=== PATIENT | female | born 1995 | race Caucasian/White ===

== ENCOUNTER 2019-03-07 10:19 | Outpatient (REF) | payer OTHER, SELFPAY ==
[2019-03-07 21:48] LABS: ALT 34 U/L (12-78); AST 17 U/L (15-37); Albumin 3.5 g/dL (3.4-5.0); Alkaline Phosphatase 76 U/L (46-116); Anion Gap 13.1 mmol/L (3-11); BUN 13 mg/dL (7-18); Bilirubin, Total 0.3 mg/dL (0.2-1.0); CO2 23.9 mmol/L (21.0-32.0); CREATININE 0.94 mg/dL (0.55-1.02); Calcium 9.5 mg/dL (8.5-10.1); Chloride 99 mmol/L (98-107); Cholesterol 220 mg/dL (50-200); Glucose 122 mg/dL (70-100); HDL Cholesterol 40 mg/dL (40-60); LDL CHOLESTEROL 149 mg/dL (<100); Potassium 4.3 mmol/L (3.5-5.1); Sodium 136 mmol/L (136-145); TSH 4.24 uIU/mL (0.358-3.74); Total Protein 7.7 g/dL (6.4-8.2); Triglyceride 215 mg/dL (30-150)
== END 2019-03-07 10:39 ==
LOC: NCHCN 10:19
PROVIDERS: PCP Family Medicine; Visit Provider Family Medicine
DX: E03.9 Hypothyroidism, unspecified (principal); Z00.00 Encounter for general adult medical examination without abnormal findings; E66.9 Obesity, unspecified
CPT/HCPCS: 80053; 80061; 83721; 84443

== ENCOUNTER 2019-10-17 15:25 | Outpatient (REF) | payer OTHER, SELFPAY ==
[2019-10-17 22:01] LABS: ALT 60 U/L (14-59); AST 41 U/L (15-37); Albumin 3.7 g/dL (3.4-5.0); Alkaline Phosphatase 67 U/L (46-116); Anion Gap 9.7 mmol/L (3-11); BUN 11 mg/dL (7-18); Bilirubin, Total 0.2 mg/dL (0.2-1.0); CO2 27.3 mmol/L (21.0-32.0); CREATININE 0.85 mg/dL (0.55-1.02); Calcium 9.4 mg/dL (8.5-10.1); Chloride 102 mmol/L (98-107); Glucose 151 mg/dL (74-106); Potassium 4.1 mmol/L (3.5-5.1); Sodium 139 mmol/L (136-145); TSH (W/Ref FT4) 4.84 uIU/mL (0.36-3.74); Total Protein 7.6 g/dL (6.4-8.2)
[2019-10-17 22:22] LABS: FREE T4 1.23 ng/dL (0.76-1.46)
== END 2019-10-17 15:45 ==
LOC: NCHCN 15:25
PROVIDERS: PCP Family Medicine; Visit Provider Nurse Practitioner Family
DX: R73.9 Hyperglycemia, unspecified (principal); I10 Essential (primary) hypertension; E03.9 Hypothyroidism, unspecified
CPT/HCPCS: 80053; 84439; 84443

== ENCOUNTER 2019-12-05 16:24 | Outpatient (REF) | payer OTHER, SELFPAY ==
[2019-12-05 21:03] LABS: Hemoglobin A1C 6.2 % (3.8-5.6)
[2019-12-05 21:20] LABS: ALT 46 U/L (14-59); AST 26 U/L (15-37); Albumin 3.6 g/dL (3.4-5.0); Alkaline Phosphatase 68 U/L (46-116); Anion Gap 9.7 mmol/L (3-11); BUN 9 mg/dL (7-18); Bilirubin, Total 0.3 mg/dL (0.2-1.0); CO2 28.3 mmol/L (21.0-32.0); CREATININE 0.77 mg/dL (0.55-1.02); Calcium 9.8 mg/dL (8.5-10.1); Chloride 102 mmol/L (98-107); Glucose 94 mg/dL (74-106); HDL Cholesterol 40 mg/dL (40-60); Potassium 4.2 mmol/L (3.5-5.1); Sodium 140 mmol/L (136-145); Total Protein 7.4 g/dL (6.4-8.2); Triglyceride 225 mg/dL (<150)
[2019-12-05 21:29] LABS: COMMENT (LAB VIEW ONLY) 201.17 mg/dL; Microalb ug/mg Crea 468.3 ug/mg Cr
[2019-12-05 21:31] LABS: Calculated LDL 165 mg/dL; Cholesterol 250 mg/dL (<200)
[2019-12-11 09:38] LABS: Testosterone, Free 1.09 ng/dL (0.06-1.08); Testosterone, Total 78 ng/dL (8-60)
== END 2019-12-05 16:44 ==
LOC: NCHCN 16:24
PROVIDERS: PCP Family Medicine; Visit Provider Family Medicine
DX: R73.9 Hyperglycemia, unspecified (principal); R80.9 Proteinuria, unspecified; E78.1 Pure hyperglyceridemia; I10 Essential (primary) hypertension; E66.9 Obesity, unspecified; E03.9 Hypothyroidism, unspecified
CPT/HCPCS: 80053; 80061; 84402; 84403; 82043; 82570; 83036; 84146; 84443

== ENCOUNTER 2020-08-31 17:41 | Outpatient (REF) | payer OTHER, SELFPAY ==
--- NOTE | 2020-08-31 16:00 | PAPFT_PTH ---
PATIENT: Mary Forde LOC: [facility] U#:[id number] AGE/SX: 25/F ROOM: RE08/31/[address]: Tripp Kent : 1995 BED: DIS: 08/31/2020 SPEC #: [id number] RECD: 09/01/20 13:01 STATUS: JUVENAL REParadise #: [id number] ELVIN: 08/31/20 16:[address]: Tripp Kent DEPT: [facility] Cytology RECD BY: Sarai Durham Tissues: 1 - CX/ENDOCX FOR PAP SMEARS Procedures: PAP THIN PREP/[facility] Screening Comments: [id number] (CHLAMYDIA/GC)
[2020-08-31 21:25] LABS: Hemoglobin A1C 5.9 % (<5.7)
[2020-08-31 21:40] LABS: ALT 53 U/L (14-59); AST 38 U/L (15-37); Albumin 3.4 g/dL (3.4-5.0); Alkaline Phosphatase 69 U/L (46-116); BUN 12 mg/dL (7-18); Bilirubin, Total 0.2 mg/dL (0.2-1.0); CREATININE 1.03 mg/dL (0.55-1.02); Calcium 9.4 mg/dL (8.5-10.1); Calculated LDL 133 mg/dL (<100); Chloride 101 mmol/L (98-107); Cholesterol 236 mg/dL (<200); Glucose 153 mg/dL (74-106); HDL Cholesterol 39 mg/dL (40-60); Potassium 3.9 mmol/L (3.5-5.1); Sodium 138 mmol/L (136-145); TSH 4.52 uIU/mL (0.36-3.74); Total Protein 7.5 g/dL (6.4-8.2); Triglyceride 320 mg/dL (<150)
[2020-08-31 22:11] LABS: PROTEIN 285.4 mg/dL
[2020-08-31 22:24] LABS: COMMENT (LAB VIEW ONLY) 273.82 mg/dL; Prot/Crea Ur Ratio 1.04
[2020-09-06 14:39] LABS: Chlamydia Result Negative (Negative); GC Result Negative (Negative)
== END 2020-08-31 18:01 ==
LOC: NCHCN 17:41
PROVIDERS: PCP Family Medicine; Visit Provider Family Medicine
DX: R80.9 Proteinuria, unspecified (principal); E03.9 Hypothyroidism, unspecified; E78.1 Pure hyperglyceridemia; R73.03 Prediabetes; N91.1 Secondary amenorrhea; E28.2 Polycystic ovarian syndrome; I10 Essential (primary) hypertension; E66.9 Obesity, unspecified; Z12.4 Encounter for screening for malignant neoplasm of cervix; Z11.3 Encounter for screening for infections with a predominantly sexual mode of transmission
CPT/HCPCS: 80053; 80061; 87491; 87591; 88142; 82565; 83036; 84156; 84443

== ENCOUNTER 2020-10-25 20:12 | Outpatient (REF) | payer OTHER, SELFPAY ==
[2020-10-25 21:56] LABS: TSH 3.83 uIU/mL (0.36-3.74)
== END 2020-10-25 20:32 ==
LOC: NCHCN 20:12
PROVIDERS: PCP Family Medicine; Visit Provider Family Medicine
DX: E03.9 Hypothyroidism, unspecified (principal)
CPT/HCPCS: 84443

== ENCOUNTER 2021-01-12 16:21 | Outpatient (REF) | payer OTHER, SELFPAY ==
[2021-01-12 22:17] LABS: Hemoglobin A1C 6.1 % (<5.7)
[2021-01-12 22:23] LABS: TSH 4.09 uIU/mL (0.36-3.74)
== END 2021-01-12 16:22 | disposition home or self-care (01) ==
LOC: NCHCN 16:21
PROVIDERS: PCP Family Medicine; Visit Provider Family Medicine
DX: R73.03 Prediabetes (principal); E03.9 Hypothyroidism, unspecified
CPT/HCPCS: 83036; 84443

== ENCOUNTER 2021-04-15 16:15 | Outpatient (REF) | payer OTHER, SELFPAY ==
[2021-04-15 21:01] LABS: Hemoglobin A1C 6.1 % (<5.7)
[2021-04-15 21:13] LABS: ALT 80 U/L (14-59); AST 61 U/L (15-37); Albumin 3.4 g/dL (3.4-5.0); Alkaline Phosphatase 77 U/L (46-116); Anion Gap 11.1 mmol/L (3-11); BUN 15 mg/dL (7-18); Bilirubin, Total 0.4 mg/dL (0.2-1.0); CO2 26.9 mmol/L (21.0-32.0); CREATININE 1.2 mg/dL (0.55-1.02); Calcium 9.2 mg/dL (8.5-10.1); Chloride 97 mmol/L (98-107); Estimated GFR 55.67 (mL/min/1.73m2); Glucose 93 mg/dL (74-106); Sodium 135 mmol/L (136-145); TSH (W/Ref FT4) 5.15 uIU/mL (0.36-3.74); Total Protein 7.7 g/dL (6.4-8.2)
[2021-04-15 21:33] LABS: FREE T4 1.47 ng/dL (0.76-1.46)
== END 2021-04-15 16:16 | disposition home or self-care (01) ==
LOC: NCHCN 16:15
PROVIDERS: PCP Family Medicine; Visit Provider Family Medicine
DX: R73.03 Prediabetes (principal); E03.9 Hypothyroidism, unspecified; I10 Essential (primary) hypertension; E66.01 Morbid (severe) obesity due to excess calories
CPT/HCPCS: 80053; 83036; 84439; 84443

== ENCOUNTER 2021-10-13 20:20 | Outpatient (REF) | payer OTHER, SELFPAY ==
[2021-10-13 22:55] LABS: Hemoglobin A1C 6.1 % (<5.7)
[2021-10-13 23:06] LABS: ALT 82 U/L (14-59); AST 58 U/L (15-37); Albumin 3.6 g/dL (3.4-5.0); Alkaline Phosphatase 69 U/L (46-116); Anion Gap 9.5 mmol/L (3-11); BUN 13 mg/dL (7-18); Bilirubin, Total 0.3 mg/dL (0.2-1.0); CO2 29.5 mmol/L (21.0-32.0); CREATININE 0.8 mg/dL (0.55-1.02); Calcium 9.3 mg/dL (8.5-10.1); Chloride 101 mmol/L (98-107); Glucose 95 mg/dL (74-106); Potassium 3.7 mmol/L (3.5-5.1); Sodium 140 mmol/L (136-145); TSH (W/Ref FT4) 2.46 uIU/mL (0.36-3.74); Total Protein 7.8 g/dL (6.4-8.2)
== END 2021-10-13 20:21 | disposition home or self-care (01) ==
LOC: NCHCN 20:20
PROVIDERS: PCP Family Medicine; Visit Provider Family Medicine
DX: I10 Essential (primary) hypertension (principal); E03.9 Hypothyroidism, unspecified; R73.03 Prediabetes; R80.9 Proteinuria, unspecified; Z00.00 Encounter for general adult medical examination without abnormal findings
CPT/HCPCS: 80053; 83036; 84443

== ENCOUNTER 2022-10-20 15:22 | Outpatient (REF) | payer OTHER, SELFPAY ==
[2022-10-20 21:34] LABS: TSH 4.51 uIU/mL (0.36-3.74)
== END 2022-10-20 15:23 | disposition home or self-care (01) ==
LOC: NCHCN 15:22
PROVIDERS: PCP Family Medicine; Visit Provider Family Medicine
DX: E03.9 Hypothyroidism, unspecified (principal)
CPT/HCPCS: 84443

== ENCOUNTER 2022-12-28 13:41 | Outpatient (REF) | payer OTHER, SELFPAY ==
[2022-12-28 14:54] LABS: TSH (W/Ref FT4) 4.14 uIU/mL (0.36-3.74)
[2022-12-28 15:24] LABS: FREE T4 1.59 ng/dL (0.76-1.46)
== END 2022-12-28 13:42 | disposition home or self-care (01) ==
LOC: NCHCN 13:41
PROVIDERS: PCP Family Medicine; Visit Provider Family Medicine
DX: E03.9 Hypothyroidism, unspecified (principal)
CPT/HCPCS: 84439; 84443

== ENCOUNTER 2023-06-26 09:30 | Outpatient (REF) | payer OTHER, SELFPAY ==
[2023-06-26 16:52] LABS: ALT 48 U/L (14-59); AST 35 U/L (15-37); Albumin 3.7 g/dL (3.4-5.0); Alkaline Phosphatase 65 U/L (46-116); Anion Gap 15.3 mmol/L (3-11); BUN 7 mg/dL (7-18); Bilirubin, Total 0.2 mg/dL (0.2-1.0); CO2 20.7 mmol/L (21.0-32.0); CREATININE 0.9 mg/dL (0.55-1.02); Calcium 9.8 mg/dL (8.5-10.1); Chloride 100 mmol/L (98-107); Estimated GFR 90.98 (mL/min/1.73m2); Glucose 137 mg/dL (74-106); Potassium 4.5 mmol/L (3.5-5.1); Sodium 136 mmol/L (136-145); TSH 1.78 uIU/mL (0.36-3.74); Total Protein 8.3 g/dL (6.4-8.2)
[2023-06-26 17:00] LABS: Hemoglobin A1C 5.8 % (<5.7)
== END 2023-06-26 09:31 | disposition home or self-care (01) ==
LOC: NCHCN 09:30
PROVIDERS: PCP Family Medicine; Visit Provider Family Medicine
DX: E03.9 Hypothyroidism, unspecified (principal); I10 Essential (primary) hypertension; N18.9 Chronic kidney disease, unspecified; E66.01 Morbid (severe) obesity due to excess calories; R73.03 Prediabetes
CPT/HCPCS: 80053; 83036; 84443

== ENCOUNTER 2023-12-06 11:04 | Outpatient (REF) | payer OTHER, SELFPAY ==
[2023-12-06 15:11] LABS: Hemoglobin A1C 5.8 % (<5.7)
[2023-12-06 15:25] LABS: ALT 40 U/L (14-59); AST 28 U/L (15-37); Albumin 3.5 g/dL (3.4-5.0); Alkaline Phosphatase 66 U/L (46-116); Anion Gap 12.8 mmol/L (3-11); BUN 13 mg/dL (7-18); Bilirubin, Total 0.3 mg/dL (0.2-1.0); CO2 24.2 mmol/L (21.0-32.0); CREATININE 0.9 mg/dL (0.55-1.02); Calcium 9.3 mg/dL (8.5-10.1); Calculated LDL 141 mg/dL (<100); Chloride 100 mmol/L (98-107); Cholesterol 233 mg/dL (<200); Estimated GFR 90.42 (mL/min/1.73m2); Glucose 123 mg/dL (74-106); HDL Cholesterol 47 mg/dL (40-60); Potassium 3.8 mmol/L (3.5-5.1); Sodium 137 mmol/L (136-145); TSH 1.14 uIU/mL (0.36-3.74); Total Protein 8.3 g/dL (6.4-8.2); Triglyceride 225 mg/dL (<150)
[2023-12-06 15:27] LABS: Vitamin D 25 Total 14.7 ng/mL (30-100)
== END 2023-12-06 11:05 | disposition home or self-care (01) ==
LOC: NCHCN 11:04
PROVIDERS: PCP Family Medicine; Visit Provider Family Medicine
DX: Z00.00 Encounter for general adult medical examination without abnormal findings (principal); I10 Essential (primary) hypertension; E03.9 Hypothyroidism, unspecified; R73.03 Prediabetes; E55.9 Vitamin D deficiency, unspecified; E66.8 Other obesity
CPT/HCPCS: 80053; 80061; 82306; 83036; 84443

== ENCOUNTER 2024-05-29 11:49 | Outpatient (REF) | payer OTHER, SELFPAY ==
--- NOTE | 2024-05-29 15:30 | PAPFT_PTH ---
PATIENT: Mary Forde LOC: [facility] U#:[id number] AGE/SX: 28/F ROOM: RE05/29/[address]: Tripp Kent : 1995 BED: DIS: 05/29/2024 SPEC #: [id number] RECD: 05/30/24 13:12 STATUS: JUVENAL REQ #: [id number] ELVIN: 05/29/24 15:[address]: Tripp Kent DEPT: [facility] [place] Cytology RECD BY: Sarai Durham Tissues: 1 - CX/ENDOCX FOR PAP SMEARS Procedures: PAP THIN PREP/[facility] Screening Comments: [id number]
== END 2024-05-29 11:50 | disposition home or self-care (01) ==
LOC: NCHCN 11:49
PROVIDERS: PCP Family Medicine; Visit Provider Family Medicine
DX: Z12.4 Encounter for screening for malignant neoplasm of cervix (principal)
CPT/HCPCS: 88142